=== PATIENT | male | born 1965 | race Caucasian/White ===

== ENCOUNTER → 2020-04-26 14:59 | Outpatient (BNVA) | payer BC, SELFPAY | PROVIDERS: Family Provider General Practice; PCP Family Medicine; Visit Provider Internal Medicine Rheumatology | DX: M54.5 Low back pain (principal); L40.0 Psoriasis vulgaris; M25.559 Pain in unspecified hip; G89.29 Other chronic pain; M77.9 Enthesopathy, unspecified | CPT/HCPCS: 99203 ==

== ENCOUNTER → 2020-06-03 12:59 | Outpatient (BNVA) | payer BC, SELFPAY | PROVIDERS: PCP Family Medicine; Visit Provider Internal Medicine Rheumatology | DX: L40.50 Arthropathic psoriasis, unspecified (principal); L40.0 Psoriasis vulgaris; Z79.899 Other long term (current) drug therapy; Z11.1 Encounter for screening for respiratory tuberculosis; Z11.59 Encounter for screening for other viral diseases; M77.9 Enthesopathy, unspecified | CPT/HCPCS: 99214 ==

== ENCOUNTER → 2020-10-20 13:51 | Outpatient (BNVA) | payer BC, SELFPAY | PROVIDERS: PCP Family Medicine; Visit Provider Internal Medicine Rheumatology | DX: L40.50 Arthropathic psoriasis, unspecified (principal); L40.0 Psoriasis vulgaris; M54.5 Low back pain; G89.29 Other chronic pain; Z79.899 Other long term (current) drug therapy; M77.9 Enthesopathy, unspecified | CPT/HCPCS: 99214 ==

== ENCOUNTER 2020-11-04 15:25 | Outpatient (CLI) | payer BC, SELFPAY | END 2020-11-04 15:26 | disposition home or self-care (01) | LOC: LAB 15:25 | PROVIDERS: PCP Family Medicine; Visit Provider Family Medicine | DX: R19.7 Diarrhea, unspecified (principal) | CPT/HCPCS: 87493; 87506 ==

== ENCOUNTER → 2021-01-27 13:53 | Outpatient (BNVA) | payer BC, SELFPAY | PROVIDERS: PCP Family Medicine; Visit Provider Internal Medicine Rheumatology | DX: L40.50 Arthropathic psoriasis, unspecified (principal); L40.0 Psoriasis vulgaris; Z79.899 Other long term (current) drug therapy; M77.9 Enthesopathy, unspecified; M54.5 Low back pain; G89.29 Other chronic pain; M70.62 Trochanteric bursitis, left hip; Y93.9 Activity, unspecified; M77.01 Medial epicondylitis, right elbow; M77.11 Lateral epicondylitis, right elbow; Z71.89 Other specified counseling | CPT/HCPCS: 99214 ==